=== PATIENT | female | born 1960 | race Caucasian/White ===

== ENCOUNTER 2018-08-18 19:59 | Emergency (ER) | payer MEDICARE, BC ==
[2018-08-18 20:14] VITALS: BP 127/81
[2018-08-18] MEDS ORDERED: ZIPRASIDONE MESYLATE INJ/PF 20 MG SDV IM ONE (20:27)
--- NOTE | 2018-08-18 20:27 | ER Document Report ---
ED Medical Screen (RME) - General Chief Complaint: Ear Pain Stated Complaint: EAR PAIN Time Seen by Provider: 08/18/18 20:26 Notes: 57 years old female with psychosis comes in with psychotic symptoms hallucinating, cursing people. Complaining pain in the left ear wanted to take an ice pick and stick it into the ear. Appears to be very psychotic. TRAVEL OUTSIDE OF THE [place] IN LAST 30 DAYS: No - Related Data Allergies/Adverse Reactions: Iodinated Contrast- Oral and IV Dye [IV Dye, Iodine Containing] Allergy ( Verified 08/18/18 20:05) iodine [Iodine] Allergy (Verified 08/18/18 20:05) Penicillins Allergy (Verified 08/18/18 20:05) Past Medical History - Past Medical History Cardiac Medical History: Reports: Hx Hypercholesterolemia Renal/ Medical History: Reports: Hx Ovarian Cysts. Denies: Hx Peritoneal Dialysis GI Medical History: Reports: Hx Gastroesophageal Reflux Disease Musculoskeltal Medical History: Reports Hx Arthritis, Reports Hx Musculoskeletal Deformity, Reports Hx Musculoskeletal Trauma Psychiatric Medical History: Reports: Hx Anxiety, Hx Bipolar Disorder Traumatic Medical History: Reports: Hx Fractures Past Surgical History: Reports: Hx Cholecystectomy, Hx Gynecologic Surgery - ovarian cyst removal, Hx Hysterectomy, Hx Orthopedic Surgery - back surgery carpal tunnel - Immunizations Immunizations up to date: Yes Hx Diphtheria, Pertussis, Tetanus Vaccination: Yes Physical Exam - Vital signs Vitals: Temp Pulse Resp BP Pulse Ox 98.1 F 60 20 127/81 H 96 08/18/18 20:12 08/18/18 20:12 08/18/18 20:12 08/18/18 20:12 08/18/18 20:12 Course - Vital Signs Vital signs: Temp Pulse Resp BP Pulse Ox 98.1 F 60 20 127/81 H 96 08/18/18 20:12 08/18/18 20:12 08/18/18 20:12 08/18/18 20:12 08/18/18 20:12
[2018-08-18 20:44] LABS: ABSOLUTE BASOPHILS # (AUTO) 0.1 10^3/uL (0.0-0.2); ABSOLUTE EOSINOPHILS # (AUTO) 0.2 10^3/uL (0.0-0.6); ABSOLUTE LYMPHOCYTES (AUTO) 3.5 10^3/uL (0.5-4.7); ABSOLUTE MONOCYTES (AUTO) 0.7 10^3/uL (0.1-1.4); ABSOLUTE NEUT (AUTO) 6.5 10^3/uL (1.7-8.2); BASOPHILS % (AUTO) 1.2 % (0-2); EOSINOPHILS % (AUTO) 1.6 % (0-6); HEMATOCRIT 39.5 % (36.0-47.0); HEMOGLOBIN 13.5 g/dL (12.0-15.5); LYMPHOCYTES % (AUTO) 31.5 % (13-45); MEAN CORPUSCULAR HEMOGLOBIN 31.3 pg (27.0-33.4); MEAN CORPUSCULAR HGB CONC 34.2 g/dL (32.0-36.0); MEAN CORPUSCULAR VOLUME 91 fl (80-97); MONOCYTES % (AUTO) 6.1 % (3-13); PLATELET COUNT 336 10^3/uL (150-450); RED BLOOD COUNT 4.32 10^6/uL (3.72-5.28); RED CELL DISTRIBUTION WIDTH 12.7 % (11.5-14.0); SEGMENTED NEUTROPHILS % (AUTO) 59.6 % (42-78); TOTAL CELLS COUNTED % (AUTO) 100 %
[2018-08-18 21:04] LABS: ALANINE AMINOTRANSFERASE 23 U/L (9-52); ALBUMIN 4.6 g/dL (3.5-5.0); ALKALINE PHOSPHATASE 69 U/L (38-126); ANION GAP 12 (5-19); ASPARTATE AMINO TRANSFERASE 14 U/L (14-36); BILIRUBIN,DIRECT 0.4 mg/dL (0.0-0.4); BILIRUBIN,TOTAL 0.4 mg/dL (0.2-1.3); BLOOD UREA NITROGEN 26 mg/dL (7-20); CALCIUM 9.5 mg/dL (8.4-10.2); CARBON DIOXIDE 20 mmol/L (22-30); CHLORIDE 106 mmol/L (98-107); GLUCOSE 117 mg/dL (75-110); SALICYLATE 1.8 mg/dL (2.0-20.0); SODIUM 138.1 mmol/L (137-145); TOTAL PROTEIN 7.7 g/dL (6.3-8.2)
[2018-08-18 21:05] LABS: APPEARANCE,URINE SLIGHTLY-CLOUDY; BILIRUBIN,URINE NEGATIVE (NEGATIVE); CALCIUM OXALATE CRYSTALS,URINE MODERATE /HPF; COLOR,URINE YELLOW; GLUCOSE, URINE NEGATIVE (NEGATIVE); KETONES,URINE NEGATIVE (NEGATIVE); LEUKOCYTE ESTERASE,URINE TRACE (NEGATIVE); NITRITE,URINE NEGATIVE (NEGATIVE); PROTEIN,URINE NEGATIVE (NEGATIVE); URINE AMPHETAMINES SCREEN NEGATIVE; URINE BARBITURATES SCREEN NEGATIVE; URINE BENZODIAZEPINES SCREEN NEGATIVE; URINE COCAINE SCREEN NEGATIVE; URINE MARIJUANA (THC) SCREEN UNCONFIRMED POSITIVE; URINE METHADONE SCREEN NEGATIVE; URINE PHENCYCLIDINE SCREEN NEGATIVE; URINE SPECIFIC GRAVITY 1.023
[2018-08-18 21:06] LABS: ACETAMINOPHEN < 10 ug/mL (10-30); ALCOHOL < 10 mg/dL (NONE DETECTED)
--- NOTE | 2018-08-19 16:53 | EKG REPORT ---
SEVERITY:- BORDERLINE ECG - SINUS RHYTHM PROBABLE LEFT ATRIAL ABNORMALITY : Confirmed by: Shara Ruiz MD 19-Aug-2018 16:52:57
== END 2018-08-18 21:00 | disposition left against medical advice (07) ==
LOC: ER 19:59
DX: H92.02 Otalgia, left ear (principal); R44.3 Hallucinations, unspecified; Z91.041 Radiographic dye allergy status; Z88.0 Allergy status to penicillin; Z53.20 Procedure and treatment not carried out because of patient's decision for unspecified reasons
CPT/HCPCS: 36415; 80053; 80307; 81001; 85025; 93005; 93010; 99281

== ENCOUNTER 2020-09-17 08:24 | Day surgery (SDC) | payer MEDICARE, BC ==
[2020-09-17 09:16] LABS: PROTHROMBIN TIME 12.3 SEC (11.4-15.4)
[2020-09-17 09:17] LABS: PARTIAL THROMBOPLASTIN TIME 27.9 SEC (23.5-35.8)
[2020-09-17 11:14] LABS: GLUCOSE,CSF 63 mg/dL (40-70); PROTEIN,CSF 30 mg/dL (12-60)
--- NOTE | 2020-09-17 11:16 | RADIOLOGY REPORT (SQ) ---
EXAM DESCRIPTION: LUMBAR PUNCTURE IMAGES COMPLETED DATE/TIME: 09/17/2020 10:22 am REASON FOR STUDY: NORMAL PRESSURE HYDROCEPHALUS COMPARISON: None. FLUOROSCOPY TIME: 41 seconds of fluoroscopy was used. 4 images saved to PACS. TECHNIQUE: Fluoroscopic guided lumbar puncture with opening and closing pressures. LIMITATIONS: None. PROCEDURE: After written consent and assessment were obtained, the patient was brought into the fluo roscopy room and placed prone on the table. The patient's lower back was prepped in a sterile fashion and an entry site was selected under live fluoroscopic guidance. The entry site was anesthetized wit h 1% lidocaine. A 20 gauge needle was advanced through the skin and into the thecal sac at the level of L 2 -L 3 . An opening pressure of 20 units was obtained. After approximately 10.5 ml of CSF was dr ained, a closing pressure of 15 units was obtained. The needle was removed and a sterile bandage was placed of the site. Specimens were sent to the lab for testing. A fluoroscopic spot image was saved t o PACS confirming level access. FINDINGS: Clear CSF IMPRESSION: Lumbar puncture under fluoroscopy. No immediate complication. COMMENT: Patient medication list reviewed: Yes- Quality ID# [id number]:Eligible professional attests to doc umenting in the medical record they obtained, updated, or reviewed the patient's current medications. Quality ID 145: Final reports for procedures using fluoroscopy that document radiation exposure indic es, or exposure time and number of fluorographic images (if radiation exposure indices are not availa ble) TECHNICAL DOCUMENTATION: Job ID: [id number] 2010 [employer] ([employer] All Rights Reserved Reading location - IP/workstation name: [email or web address] [id number]
[2020-09-17 11:46] LABS: CSF TUBE NUMBER 3
[2020-09-17 11:47] LABS: APPEARANCE ALL TUBES CLEAR; COLOR ALL TUBES COLORLESS; CSF TOTAL VOLUME 10.5 CC; VOLUME TUBE 3 2.5 CC
[2020-09-17 11:48] LABS: RED BLOOD CELL,CSF 2 /uL (0-10)
[2020-09-17 11:50] LABS: WHITE BLOOD CELL,CSF 0 /uL (0-5)
[2020-09-17 12:43] VITALS: BP 123/74
[2020-09-18 16:37] LABS: ALBUMIN SERUM 3.9 g/dL (3.8-4.8); CSF IGG INDEX 0.5 (0.0-0.7); IGG SYNTHESIS RATE CSF -1.2 mg/day (-9.9 TO +3); IGG/ALBUMIN RATIO CSF 0.09 (0.00-0.25); IMMUNOGLOBULIN G CSF 1.6 mg/dL (0.0-8.6)
== END 2020-09-17 12:35 | disposition home or self-care (01) ==
LOC: RAD 08:24
PROVIDERS: ATTEND Specialist
DX: G91.2 (Idiopathic) normal pressure hydrocephalus (principal); R26.9 Unspecified abnormalities of gait and mobility; N32.9 Bladder disorder, unspecified; R42 Dizziness and giddiness; Z79.01 Long term (current) use of anticoagulants
CPT/HCPCS: 36415; 62328; 82784; 82945; 84157; 85610; 85730; 87070; 87205; 89050